=== PATIENT | female | born 1980 | race Hispanic/Latino ===

== ENCOUNTER 2024-07-20 08:48 | Day surgery (SDC) | payer BC ==
[2024-07-20 08:54] LABS: Absolute Monocytes 0.3 K/uL (0.1-1.3); Absolute Neutrophil 2.1 K/uL (1.8-8.0); Basophils % 0.4 % (0-1.3); Eosinophils % 0.7 % (0-4.4); Hematocrit 35.4 % (36.0-45.0); Hemoglobin 12.5 g/dL (12.0-15.0); Lymphocytes % 29.5 % (15.3-44.8); MCH 33.5 pg (27.0-35.0); MCHC 35.2 g/dL (32.0-36.0); MCV 95.1 fL (80-100); MPV 6.7 fL (7.6-11.3); Monocytes % 9.5 % (3.3-12.3); Neutrophils % 59.9 % (41.7-73.7); Nucleated Red Blood Cells % 0.2 % (0-0); Platelets 234 thou/uL (152-406); RBC Red Blood Cell Count 3.72 M/uL (3.86-4.86); Red Cell Distribution Width 13.1 % (12.1-15.2)
[2024-07-20 09:04] LABS: ALT/SGPT 19 U/L (13-56); Albumin 4.1 g/dL (3.4-5.0); Albumin/Globulin Ratio 1.1 (1.1-1.8); Alkaline Phosphatase 97 U/L (45-117); Anion Gap 7.3 mEq/L (5.0-15.0); BUN Blood Urea Nitrogen 12 mg/dL (7-18); Bicarbonate 29 mEq/L (21-32); Bilirubin Direct 0.2 mg/dL (0-0.2); Bilirubin Indirect, Calculated 0.3 mg/dL (0.2-0.8); Bilirubin Total 0.5 mg/dL (0.2-1.0); Globulin 3.6 g/dL (2.3-3.5); Glomerular Filtration Rate 104 ml/min (=/>90); Glucose Level 86 mg/dL (74-106); Lipase 23 U/L (13-75); Potassium 4.3 mEq/L (3.5-5.1); Protein, Total 7.7 g/dL (6.4-8.2); Sodium Level 141 mEq/L (136-145)
--- NOTE | 2024-07-20 09:04 | RAD REPORT ---
EXAM: Chest Pa And Lat (2 Views) HISTORY: 44 years Female Pre-op pending cholecystectomy COMPARISON: None. FINDINGS: LUNGS/PLEURA: The lungs are clear. No pleural effusions or pneumothorax. No pulmonary edema. MEDIASTINUM: The mediastinal silhouette is within normal limits CARDIAC: The cardiac silhouette is within normal limits. UPPER ABDOMEN: No significant abnormality. BONES: No acute abnormality. LINES/TUBES/OTHER: Surgical clips in the left upper chest wall. IMPRESSION: No evidence of acute cardiopulmonary disease.
[2024-07-20 09:09] LABS: AST/SGOT < 10 U/L (15-37)
[2024-07-20] MEDS ORDERED: ONDANSETRON 4 MG/2 ML VIAL ONE (09:13)
[2024-07-20] MEDS ORDERED: ROCURONIUM 50 MG/5 ML VIAL IV ONE (09:13)
[2024-07-20] MEDS ORDERED: propofoL 200 MG/20 ML VIAL IV ONE (09:13)
[2024-07-20] MEDS ORDERED: GLYCOPYRROLATE 0.2 MG/ML SYR ONE (09:13)
[2024-07-20] MEDS ORDERED: FENTANYL CITR 100 MCG/2 ML ONE ×2 (09:13→10:01)
[2024-07-20] MEDS ORDERED: NEOSTIGMINE 1 MG/ML -10 ML VIAL ONE (09:13)
[2024-07-20] MEDS ORDERED: MIDAZOLAM HCL 2 MG/2 ML INJ ONE (09:13)
[2024-07-20] MEDS ORDERED: LIDOCAINE 2% MPF 5 ML VIAL ONE (09:14)
[2024-07-20] MEDS ORDERED: dexAMETHasone 4 MG/ML VIAL ONE (09:30)
[2024-07-20] MEDS: CEFOXITIN SODIUM 1 GM/VIAL ONE (09:30)
[2024-07-20] MEDS ORDERED: dexAMETHasone 10 MG/ML VIAL ONE (09:30)
[2024-07-20] MEDS: Ringers Lactate 1,000 ML IV ONE (09:36)
[2024-07-20] MEDS ORDERED: EPHEDRINE SULF 50 MG/ML VIAL ONE (09:50)
[2024-07-20] MEDS ORDERED: Mastisol Adhesive Liq ONE (10:04)
[2024-07-20] MEDS ORDERED: LABETALOL 20 MG/4ML SYRINGE IV ONE (10:27)
[2024-07-20] MEDS: HYDROMORPHONE HCL 1 MG/ML INJ ONE (10:45)
--- NOTE | 2024-07-20 10:58 | P.BOP ---
Preoperative diagnosis: RUQ abd pain, billiary dyskinesia, GB polyp Postoperative diagnosis: same Primary procedure: Laparoscopic cholecystectomy Estimated blood loss: <10cc Specimen: gb Findings: as above Anesthesia: General Complications: None Transferred to: Recovery Room Condition: Good
[2024-07-20] MEDS: TRAMADOL 37.5mg/APAP 325mg PER TAB ONE (11:15)
[2024-07-20 12:46] VITALS: BP 107/66; O2SAT 100
[2024-07-20 12:48] VITALS: TEMP 97.1
--- NOTE | 2024-07-21 20:11 | OP ---
Surgeon: Nabor Patterson MD Preoperative Diagnoses: Right upper quadrant abdominal pain, biliary dyskinesia, gallbladder polyps. Postoperative Diagnoses: Right upper quadrant abdominal pain, biliary dyskinesia, gallbladder polyps . Procedure: Laparoscopic cholecystectomy. Estimated Blood Loss: Less than 10 cc. Specimen: Gallbladder. Anesthesia: General plus local. Indications: This is a case of a 44-year-old patient with above diagnoses. Fully explained the bene fits, alternatives, and risks of laparoscopic possible open cholecystectomy, which include, but not l imited to, infection, bleeding, damage to adjacent structures, anesthesia complication, choledocholit hiasis, bile leak, pancreatitis, MS, and even . She also understands this may not relieve any s ymptoms. She might need more than one surgical intervention. She understood, signed a consent. Description Of The Operation: The patient was brought to the operating room, placed in supine positi on. Anesthesia was induced without complication. Abdominal area was prepped and draped in the usual sterile fashion. Marcaine 0.5% was injected for local anesthetic followed by sharp incision of the skin in the periumbilical region. Incision was carried down to fascia, which was opened under direct vision. Peritoneum was encountered, opened under direct vision. Vicryl #1 placed inside the fascia . Elvie trocar was carefully introduced. Pneumoperitoneum was obtained. I placed three more troca rs, 5 mm each one of them, one in the epigastric area, two in the right upper quadrant using same cherise hnique which consisted of local anesthetic, sharp incision of the skin and introduction of the trocar s under direct vision. This allowed me to put a grasper in the fundus of the gallbladder, another gr asper in the infundibulum, retracting the gallbladder in the inferolateral fashion exposing the trian gle of [place], and obtaining critical view. Cystic duct and cystic artery were clearly isolated, free d circumferentially, and a connection between those and the gallbladder was clearly identified. I pr oceeded to ligate those by using at least three clips proximal, one clip distal, and ligation in the middle. Same was done with the cystic artery. No bile leak. No bleeding. The gallbladder was danielito [place] from the liver using Bovie cauterizer and removed from abdominal cavity using an EndoCatch throug h the umbilical incision. Area was inspected once again. No bile leak. No bleeding. At that momen t, I proceeded to remove the trocars under direct vision. Deflated the pneumoperitoneum, closed the fascia with #1 Vicryl, irrigated subcutaneous tissue, closed that with 3-0 chromic, and skin approxim ated with 3-0 chromic in a subcuticular fashion and Steri-Strips on top. Sponge counts and instrumen t counts were correct. Patient tolerated the procedure well. Patient was sent to Recovery in stable condition. INDRA/MARIANA Voice ID: [id number] Report ID: [id number]
--- NOTE | 2024-07-21 23:17 | DS ---
Date of Discharge: 07/20/2024 Diagnoses: Right upper quadrant abdominal pain, biliary dyskinesia, and gallbladder polyps. Procedure: Laparoscopic cholecystectomy. Condition: Stable. Disposition: Home. Activity: As tolerated. No heavy lifting. Discharge Instructions: Follow up in my office in 1 week. Call for appointment at [phone]. Keep a lissa dry for 48 hours, then may shower. Keep Steri-Strips intact. INDRA/MARIANA Voice ID: [id number] Report ID: [id number]
== END 2024-07-20 12:15 | disposition home or self-care (01) ==
LOC: OR 08:48
PROVIDERS: ATTEND Surgery
PROC: 0FT44ZZ Resection of Gallbladder, Percutaneous Endoscopic Approach (ICD-10-PCS; principal; 2024-07-20 09:45)
DX: K82.4 Cholesterolosis of gallbladder (principal); K82.8 Other specified diseases of gallbladder; R10.11 Right upper quadrant pain
CPT/HCPCS: 93005; 85025; 80048; 36415; 84703; 80076; 88304; 83690; 71046; 47562; J2704; J1100; J2710; J2003; J2250; J3010 ×2; J1171; J0694; J2405; J7120